=== PATIENT | female | born 1965 | race American Indian/Alaskan Native ===

== ENCOUNTER 2021-11-02 12:03 | Emergency (ER) | payer BC, SELFPAY ==
--- NOTE | 2021-11-02 12:52 | Emergency Department Report ---
ED Female HPI - General Chief complaint: Urogenital-Female Stated complaint: AB PAIN Source: patient Mode of arrival: Ambulatory Limitations: No Limitations - History of Present Illness Initial comments: 56 y/o female present to ed after being evaluate at urgent care with hematuria .Patient state that she state that she start exercise this week doing 20-30 sit up and now she have abdominal soreness x1 day. She states more soreness on the left side than the right. Patient denies any vaginal discharge or bleeding at present. States having unprotected sexual intercourse x2 days ago.She denies any dysuria ,fever or chills .No acute distress note .No ill apperance noted . MD Complaint: vaginal bleeding Worsens with: none Are you Now?: No Associated Symptoms: denies other symptoms - Related Data Previous Rx's Medication Instructions Recorded Last Taken Type Ciprofloxacin [Ciprofloxacin ORAL 500 mg PO Q12H 5 Days #10 tab 11/02/21 Unknown Rx LIQ] Cyclobenzaprine [Flexeril] 10 mg PO TID PRN 15 Days #30 tab 11/02/21 Unknown Rx Naproxen [Naprosyn] 500 mg PO BID 15 Days #30 tablet 11/02/21 Unknown Rx Allergies Allergy/AdvReac Type Severity Reaction Status Date / Time No Known Allergies Allergy Unverified 02/21/16 12:11 ED Review of Systems ROS: Stated complaint: AB PAIN Other details as noted in HPI Constitutional: denies: chills, fever Eyes: denies: eye pain, eye discharge, vision change ENT: denies: ear pain, throat pain Respiratory: denies: cough, shortness of breath, wheezing Cardiovascular: denies: chest pain, palpitations Endocrine: no symptoms reported Gastrointestinal: denies: abdominal pain, nausea, diarrhea Genitourinary: hematuria. denies: urgency, dysuria, discharge Musculoskeletal: denies: back pain, joint swelling, arthralgia Skin: denies: rash, lesions Neurological: denies: headache, weakness, paresthesias Psychiatric: denies: anxiety, depression Hematological/Lymphatic: denies: easy bleeding, easy bruising ED Past Medical Hx - Past Medical History Previous Medical History?: Yes Hx Congestive Heart Failure: No Hx Diabetes: No Hx Asthma: Yes Hx COPD: No Hx HIV: No - Surgical History Past Surgical History?: Yes Additional Surgical History: tubligation in 1995 - Social History Smoking Status: Unknown if ever smoked - Medications Home Medications: Home Medications Medication Instructions Recorded Confirmed Last Taken Type Ciprofloxacin [Ciprofloxacin ORAL 500 mg PO Q12H 5 Days #10 tab 11/02/21 Unknown Rx LIQ] Cyclobenzaprine [Flexeril] 10 mg PO TID PRN 15 Days #30 tab 11/02/21 Unknown Rx Naproxen [Naprosyn] 500 mg PO BID 15 Days #30 tablet 11/02/21 Unknown Rx ED Physical Exam - General Limitations: No Limitations General appearance: alert, in no apparent distress - Head Head exam: Present: atraumatic, normocephalic - Eye Eye exam: Present: normal appearance - ENT ENT exam: Present: mucous membranes moist - Neck Neck exam: Present: normal inspection - Respiratory Respiratory exam: Present: normal lung sounds bilaterally. Absent: respiratory distress, wheezes, rales - Cardiovascular Cardiovascular Exam: Present: regular rate, normal rhythm. Absent: systolic m urmur, diastolic murmur, rubs, gallop - GI/Abdominal GI/Abdominal exam: Present: soft, normal bowel sounds - Extremities Exam Extremities exam: Present: normal inspection - Back Exam Back exam: Present: normal inspection - Neurological Exam Neurological exam: Present: alert, oriented X3 - Psychiatric Psychiatric exam: Present: normal affect, normal mood - Skin Skin exam: Present: warm, dry, intact, normal color. Absent: rash ED Course Vital Signs 11/02/21 11/02/21 12:09 13:54 Temperature 98.3 F Pulse Rate 88 Respiratory 18 20 Rate Blood Pressure 111/56 O2 Sat by Pulse 98 Oximetry ED Medical Decision Making - Medical Decision Making 56 y/o female present to ed after being evaluate at urgent care with hematuria .Patient state that she state that she start exercise this week doing 20-30 sit up and now she have abdominal soreness x1 day. She states more soreness on the left side than the right. Patient denies any vaginal discharge or bleeding at present. States having unprotected sexual intercourse x2 days ago.She denies any dysuria ,fever or chills .No acute distress note .No ill apperance noted . We will treat patient for UTI with hematuria is likely related to post sexual intercourse. Patient abdominal tenderness related likely related to sudden onset of excessive exercise.. discharge instruction given to patient verbalized understanding . Patient discharged alert and oriented x4. Physical examination unremarkable. Critical care attestation.: If time is entered above; I have spent that time in minutes in the direct care of this critically ill patient, excluding procedure time. ED Disposition Clinical Impression: Muscle strain Urinary tract infection Qualifiers: Urinary tract infection type: site unspecified Hematuria presence: with hematuria Qualified Code(s): N39.0 - Urinary tract infection, site not specified Disposition: 01 HOME / SELF CARE / HOMELESS Is pt being admited?: No Does the pt Need Aspirin: No Condition: Stable Instructions: Muscle Strain, [id number], Urinary Tract Infection, Adult Additional Instructions: Drink plenty of fluids Follow-up with primary care doctor do not start exercise without doctor permission May take [id number] Tylenol Prescriptions: Ciprofloxacin [Ciprofloxacin ORAL LIQ] 500 mg PO Q12H 5 Days #10 tab Cyclobenzaprine [Flexeril] 10 mg PO TID PRN 15 Days #30 tab PRN Reason: Muscle Spasm Naproxen [Naprosyn] 500 mg PO BID 15 Days #30 tablet Referrals: PETER CAMARA MD [Primary Care Provider] - 3-5 Days BRO ZAVALA MD [Referring] - 3-5 Days Time of Disposition: 15:12
[2021-11-02] MEDS ORDERED: KETOROLAC 60 MG/2 ML INJ IM ONE (13:47)
[2021-11-02 14:47] LABS: Bilirubin,Urine NEG (Negative); Blood,Urine MOD (Negative); Color,Urine Yellow (Yellow); Mucus,Urine FEW /HPF; Protein,Urine <15 mg/dL mg/dL (Negative); Urobilinogen,Urine < 2.0 mg/dL (<2.0)
[2021-11-02 15:58] VITALS: BP 121/67
== END 2021-11-02 15:58 | disposition home or self-care (01) ==
LOC: ED 12:03
DX: T14.8XXA Other injury of unspecified body region, initial encounter (principal); N39.0 Urinary tract infection, site not specified; Z79.899 Other long term (current) drug therapy; Z98.890 Other specified postprocedural states; X58.XXXA Exposure to other specified factors, initial encounter; Y93.B2 Activity, push-ups, pull-ups, sit-ups; Y92.89 Other specified places as the place of occurrence of the external cause; Y99.8 Other external cause status; J45.909 Unspecified asthma, uncomplicated
CPT/HCPCS: 81001; 96372; 99283; J1885